=== PATIENT | female | born 1990 | race African-American/Black ===

== ENCOUNTER 2020-08-08 13:13 | Outpatient (CLI) | payer MEDICAID ==
[~2020-08-08 13:13] MED LIST: CLIN300C9 PO; SULF-169 PO
== END 2020-08-08 23:59 | disposition home or self-care (01) ==
LOC: CFH 13:13
PROVIDERS: ATTEND Obstetrics & Gynecology
DX: Z02.9 Encounter for administrative examinations, unspecified (principal)